=== PATIENT | male | born 1995 | race Caucasian/White ===

== ENCOUNTER 2017-10-17 22:10 | Emergency (ER) | payer MEDICAID, SELFPAY ==
[2017-10-17 22:10] VITALS: BP 149/77; PULSE 98; RESP 20; TEMP 36.7; O2SAT 100; BMI 20.9
--- NOTE | 2017-10-17 22:59 | RAD_ITS ---
XR Spine Thoracic 3 Views INDICATION: HURT HIS UPPER BACK FROM JUMPING ON A TRAMPOLINE COMPARISON: None TECHNIQUE: Frontal and lateral views of the thoracic spine and lateral swimmer's view FINDINGS: There is normal thoracic kyphosis and no evidence of scoliosis. Height of the vertebral bodies and intervertebral disc spaces is preserved. RAD/Thoracic Spine 3 Views IMPRESSION: Negative frontal and lateral views of the thoracic spine. at 2335 Reported and signed by: Tami Valladares MD Electronically Signed: Tami Valladares MD at 23:33 EDT Tel , Service support ,
--- NOTE | 2017-10-17 22:59 | RAD_ITS ---
XR Chest 1 View INDICATION: HURT HIS UPPER BACK FROM JUMPING ON A TRAMPOLINE COMPARISON: None FINDINGS: Heart size and pulmonary vascularity are within normal limits. The lungs are clear without evidence of airspace consolidation or pleural effusion. The osseous structures are grossly unremarkable. RAD/Chest 1 View IMPRESSION: No radiographic evidence of acute intrathoracic disease. at 2334 Reported and signed by: Tami Valladares MD Electronically Signed: Tami Valladares MD at 23:32 EDT Tel , Service support ,
--- NOTE | 2017-10-17 23:00 | ED.VISSUMM ---
- ER Visit Summary Date of Service: 10/17/17 Chief Complaint: Back pain History of Present Illness: The patient is a 22 M presenting with back pain. He states on Wednesday he was jumping on a trampoline and twisted and did a flip. He hit his back on a pole of the trampoline. He did not hit his head or lose consciousness. He tried no medications at home prior to arrival. No other complaints. Physical Examination: Vitals are stable. Patient is afebrile. Alert no acute distress. HEENT exam is unremarkable. Neck is nontender Lungs are clear and equal bilaterally. Heart is regular rate and rhythm. Abdomen is soft nontender nondistended. Back: Thoracic spinal and paraspinal muscle tenderness bilaterally, mild. No step-offs Extremities are unremarkable. Skin is warm and dry. No focal neurologic deficit. Remainder of exam is unremarkable. Emergency Department Course and Treatment: Thoracic spine x-ray and chest x-ray showed no acute process. He is given a prescription for naproxen. Advised to follow-up with primary care physician. Advised return to ED for worsening complaints. Disposition: Discharge home Impression: Thoracic back strain This note was generated with [employer] dictation software. It may contain incorrect words, spelling, and punctuation that were not noted in review of the chart prior to signing ED Disposition - Plan for ED Patient: Chief Complaint: Back Referrals: [facility],Out of [Primary Care Provider] -
--- NOTE | 2017-10-17 23:51 | ED.DEP ---
ED Disposition - Plan for ED Patient: Chief Complaint: Back Instructions: ED Neck Back Pain General Prescriptions: Naproxen [Naprosyn] 500 mg PO BID PRN #20 tablet Referrals: [facility] Doctor,Out of [Primary Care Provider] - Ralph Lin DO [COURTESY STAFF PHYSICIAN] -
[2017-10-18 00:03] VITALS: PULSE 94; RESP 15; O2SAT 98
== END 2017-10-18 00:12 | disposition home or self-care (01) ==
LOC: ED 23:43
PROVIDERS: Emergency Provider Emergency Medicine; Family Provider Family Medicine; PCP Family Medicine
DX: S29.012A Strain of muscle and tendon of back wall of thorax, initial encounter (principal); X50.1XXA Overexertion from prolonged static or awkward postures, initial encounter; W22.09XA Striking against other stationary object, initial encounter; Y93.44 Activity, trampolining; Y92.9 Unspecified place or not applicable; Y99.9 Unspecified external cause status; Z72.0 Tobacco use
CPT/HCPCS: 71045; 72072; 99282